=== PATIENT | male | born 1950 | race Caucasian/White ===

== ENCOUNTER 2018-04-19 18:42 | Observation (INO) | payer MEDICARE, OTHER ==
[2018-04-19 18:45] VITALS: BP 141/78; PULSE 96; RESP 20; TEMP 98.9; O2SAT 97
[2018-04-19] MEDS ORDERED: SODIUM CHLORIDE 0.9% FLUSH 10 ML FLUSH IVF PRN (19:00)
[2018-04-19] MEDS ORDERED: ASPIRIN 325 MG TAB PO ONE (19:00)
[2018-04-19 19:04] LABS: AUTOMATED NEUTROPHIL # 0.6 TH/MM3 (1.8-7.7); BASOPHIL % 1.5 % (0.0-2.0); EOSINOPHIL % 0.7 % (0.0-4.0); HEMATOCRIT 33.8 % (39.0-51.0); HEMOGLOBIN 11.4 GM/DL (13.0-17.0); LYMPH % 30.5 % (9.0-44.0); LYMPHOCYTE # 0.4 TH/MM3 (1.0-4.8); MEAN CELL VOLUME 81.4 FL (80.0-100.0); MEAN CORPUSCULAR HEMOGLOBIN 27.4 PG (27.0-34.0); MEAN CORPUSCULAR HGB CONC 33.7 % (32.0-36.0); MEAN PLATELET VOLUME 7.9 FL (7.0-11.0); MONO % 16.1 % (0.0-8.0); MONOCYTE # 0.2 TH/MM3 (0-0.9); NEUT % 51.2 % (16.0-70.0); PLATELET COUNT 62 TH/MM3 (150-450); RED BLOOD COUNT 4.16 MIL/MM3 (4.50-5.90); RED CELL DISTRIBUTION WIDTH 15.3 % (11.6-17.2); WHITE BLOOD COUNT 1.2 TH/MM3 (4.0-11.0)
[2018-04-19 19:12] LABS: CHLORIDE 106 MEQ/L (98-107); SODIUM (NA) 138 MEQ/L (136-145)
[2018-04-19 19:14] VITALS: BP 141/78; PULSE 94; RESP 20; O2SAT 96
[2018-04-19 19:15] LABS: CALCIUM 8.7 MG/DL (8.5-10.1)
[2018-04-19 19:16] VITALS: BP 141/78; PULSE 96; RESP 18; O2SAT 97
[2018-04-19 19:16] LABS: ALBUMIN 3.1 GM/DL (3.4-5.0); BICARBONATE 24.1 MEQ/L (21.0-32.0); BLOOD UREA NITROGEN 33 MG/DL (7-18); GLUCOSE,RANDOM 123 MG/DL (74-106); MAGNESIUM 2.2 MG/DL (1.5-2.5)
[2018-04-19] MEDS ORDERED: LIPI80TA PO (19:17)
[2018-04-19] MEDS ORDERED: NOVOLOGP2 SQ (19:17)
[2018-04-19] MEDS ORDERED: LISI10TA3 PO (19:17)
[2018-04-19] MEDS ORDERED: LANTUS2P SQ (19:17)
[2018-04-19] MEDS ORDERED: LAMO100T PO (19:17)
[2018-04-19] MEDS ORDERED: CLOP75TA PO (19:17)
[2018-04-19] MEDS ORDERED: FLUT1INH7 INH (19:17)
[2018-04-19] MEDS ORDERED: BUPR150T3 (19:17)
[2018-04-19] MEDS ORDERED: ASPI-516 CHEW (19:17)
[2018-04-19] MEDS ORDERED: METF1000 PO (19:17)
[2018-04-19] MEDS ORDERED: SUBO8MIS SL (19:17)
[2018-04-19] MEDS ORDERED: TIOT12.9 INH (19:17)
[2018-04-19] MEDS ORDERED: METO50TA PO (19:17)
[2018-04-19] MEDS ORDERED: LYRI100C PO (19:17)
[2018-04-19 19:18] LABS: ALT (GPT) 26 U/L (12-78); PROTHROMBIN TIME - PATIENT 10.1 SEC (9.8-11.6)
[2018-04-19 19:19] LABS: AST (GOT) 11 U/L (15-37); GLOMERULAR FILTRATION RATE 40 ML/MIN (>89)
[2018-04-19 19:20] LABS: TOTAL BILIRUBIN ADULT 0.4 MG/DL (0.2-1.0); TOTAL PROTEIN 6.9 GM/DL (6.4-8.2)
[2018-04-19 19:21] LABS: ALKALINE PHOSPHATASE 76 U/L (45-117)
[2018-04-19 19:24] LABS: TROPONIN I LESS THAN 0.02 NG/ML (0.02-0.05)
--- NOTE | 2018-04-19 19:27 | PD ---
HPI Chief Complaint: Pain: Acute or Chronic Time Seen by Provider: 19:22 Travel History International Travel<30 days: No Contact w/Intl Traveler<30days: No Traveled to known affect area: No History of Present Illness HPI Patient comes in complaining of continuous substernal chest pain, over the past 3 days, rated 7 out of 10, patient gives a history of a recent cath is at [facility]( 1 month ago )however states that he did not have any stents placed? Patient denies any alleviating or aggravating factors. Patient denies any associated factors such as fever, rash, nausea, vomiting, diaphoresis, abdominal pain, flank pain or back pain. Patient states narcotics and alcohol are in his allergies Past medical history significant for heart attack, hypercholesterolemia, diabetes, hypertension, COPD, 1 pack a day smoker, chronic back pain, neuropathy to feet, patient is on Suboxone [facility] Past Medical History High Cholesterol: Yes Chest Pain: Yes COPD: Yes Diabetes: Yes Patient Takes Glucophage: Yes Diminished Hearing: No Hypertension: Yes Musculoskeletal: Yes (CHRONIC BACK PAIN, FEET NEUROPATHY) Myocardial Infarction: Yes Tetanus Vaccination: < 5 Years Influenza Vaccination: Yes ?: Not Social History Alcohol Use: No Tobacco Use: Yes (1PPD) Substance Use: Yes (OPIATE DEPENDEN FOR 21 YEARS ,NOW ON SUBOXONE) Allergies-Medications (Allergen,Severity, Reaction): Coded Allergies: alcohol (Unverified Allergy, Unknown, 04/19/18) Uncoded Allergies: NARCOTICS (Allergy, Unknown, 11/30/03) Reported Meds & Prescriptions Reported Meds & Active Scripts Active Reported Spiriva Respimat Inh (Tiotropium Inh) 2.5 Mcg/Act Aero 2 Puff INH DAILY 2.5 mcg = 1 inhalation Lyrica (Pregabalin) 100 Mg Cap 100 Mg PO TID Metoprolol Tartrate 50 Mg Tab 50 Mg PO DAILY Metformin (Metformin HCl) 1,000 Mg Tab 1,000 Mg PO BIDPC Lisinopril 10 Mg Tab 10 Mg PO DAILY Lamotrigine 100 Mg Tab 100 Mg PO DAILY Lantus Inj (Insulin Glargine) 1,000 Unit/10 Ml Vial 70 Units SQ HS Novolog Inj (Insulin Aspart) 1,000 Unit/10 Ml Vial 0 SQ DIRECTED Sliding Scale as directed. Breo Ellipta Inh (Fluticasone/Vilanterol) 200-25 Mcg/Act Inh 1 Puff INH DAILY Use daily at the same time. Clopidogrel (Clopidogrel Bisulfate) 75 Mg Tab 75 Mg PO DAILY Suboxone Sublingual Film (Buprenorphine-Naloxone Sublingual Film) 8-2 Mg Film 1 Film SL Unique ID number required: Bupropion HCl ER 24 HR (Bupropion HCl) 150 Mg Tab 150 Mg DAILY Lipitor (Atorvastatin Calcium) 80 Mg Tab 80 Mg PO HS Aspirin 81 Mg Chew 81 Mg CHEW DAILY Review of Systems General / Constitutional: No: Fever Eyes: No: Visual changes HENT: No: Headaches Cardiovascular: Positive: Chest Pain or Discomfort Respiratory: No: Shortness of Breath Gastrointestinal: No: Abdominal Pain Genitourinary: No: Dysuria Musculoskeletal: No: Pain Skin: No Rash Neurologic: No: Weakness Psychiatric: No: Depression Endocrine: No: Polydipsia Hematologic/Lymphatic: No: Easy Bruising Physical Exam Narrative GENERAL: SKIN: Warm and dry. HEAD: Atraumatic. Normocephalic. EYES: Pupils equal and round. No scleral icterus. No injection or drainage. ENT: No nasal bleeding or discharge. Mucous membranes pink and moist. NECK: Trachea midline. No JVD. CARDIOVASCULAR: Regular rate and rhythm. RESPIRATORY: No accessory muscle use. Clear to auscultation. Breath sounds equal bilaterally. GASTROINTESTINAL: Abdomen soft, non-tender, nondistended. MUSCULOSKELETAL: Extremities without clubbing, cyanosis, or edema. No obvious deformities. NEUROLOGICAL: Awake and alert. No obvious cranial nerve deficits. Motor grossly within normal limits. Five out of 5 muscle strength in the arms and legs. Normal speech. PSYCHIATRIC: Appropriate mood and affect; insight and judgment normal. Data Data Last Documented VS Vital Signs Date Time Temp Pulse Resp B/P (MAP) Pulse Ox O2 Delivery O2 Flow Rate FiO2 04/19/18 20:31 92 18 125/73 (90) 96 04/19/18 19:16 Room Air 04/19/18 18:45 98.9 Orders Orders Electrocardiogram (04/19/18 18:51) B-Type Natriuretic Peptide (04/19/18 18:51) Ckmb (Isoenzyme) Profile (04/19/18 18:51) Complete Blood Count With Diff (04/19/18 18:51) Comprehensive Metabolic Panel (04/19/18 18:51) Magnesium (Mg) (04/19/18 18:51) Prothrombin Time / Inr (Pt) (04/19/18 18:51) Act Partial Throm Time (Ptt) (04/19/18 18:51) Troponin I (04/19/18 18:51) Lipase (04/19/18 18:51) Chest, Single Ap (04/19/18 18:51) Ecg Monitoring (04/19/18 18:51) Iv Access Insert/Monitor (04/19/18 18:51) Oximetry (04/19/18 18:51) Oxygen Administration (04/19/18 18:51) Aspirin (Aspirin) (04/19/18 19:00) Sodium Chloride 0.9% Flush (Ns Flush) (04/19/18 19:00) Nitroglycerin 2% Oint (Nitroglycerin 2% (04/19/18 19:30) Hydromorphone Pf Inj (Dilaudid Pf Inj) (04/19/18 20:30) Labs Laboratory Tests Test 04/19/18 18:50 White Blood Count 1.2 TH/MM3 Red Blood Count 4.16 MIL/MM3 Hemoglobin 11.4 GM/DL Hematocrit 33.8 % Mean Corpuscular Volume 81.4 FL Mean Corpuscular Hemoglobin 27.4 PG Mean Corpuscular Hemoglobin Concent 33.7 % Red Cell Distribution Width 15.3 % Platelet Count 62 TH/MM3 Mean Platelet Volume 7.9 FL Neutrophils (%) (Auto) 51.2 % Lymphocytes (%) (Auto) 30.5 % Monocytes (%) (Auto) 16.1 % Eosinophils (%) (Auto) 0.7 % Basophils (%) (Auto) 1.5 % Neutrophils # (Auto) 0.6 TH/MM3 Lymphocytes # (Auto) 0.4 TH/MM3 Monocytes # (Auto) 0.2 TH/MM3 Eosinophils # (Auto) 0.0 TH/MM3 Basophils # (Auto) 0.0 TH/MM3 CBC Comment AUTO DIFF Differential Total Cells Counted 100 Neutrophils % (Manual) 34 % Band Neutrophils % 9 % Lymphocytes % 45 % Monocytes % 10 % Eosinophils % 1 % Neutrophils # (Manual) 0.5 TH/MM3 Metamyelocytes 1 % Differential Comment FINAL DIFF MANUAL Dohle Bodies PRESENT Platelet Estimate LOW Platelet Morphology Comment NORMAL Red Cell Morphology Comment NORMAL Prothrombin Time 10.1 SEC Prothromb Time International Ratio 1.0 RATIO Activated Partial Thromboplast Time 26.7 SEC Blood Urea Nitrogen 33 MG/DL Creatinine 1.70 MG/DL Random Glucose 123 MG/DL Total Protein 6.9 GM/DL Albumin 3.1 GM/DL Calcium Level 8.7 MG/DL Magnesium Level 2.2 MG/DL Alkaline Phosphatase 76 U/L Aspartate Amino Transf (AST/SGOT) 11 U/L Alanine Aminotransferase (ALT/SGPT) 26 U/L Total Bilirubin 0.4 MG/DL Sodium Level 138 MEQ/L Potassium Level 4.5 MEQ/L Chloride Level 106 MEQ/L Carbon Dioxide Level 24.1 MEQ/L Anion Gap 8 MEQ/L Estimat Glomerular Filtration Rate 40 ML/MIN Total Creatine Kinase 70 U/L Troponin I LESS THAN 0.02 NG/ML B-Type Natriuretic Peptide 159 PG/ML Lipase 92 U/L MDM Medical Decision Making Medical Screen Exam Complete: Yes Emergency Medical Condition: Yes Medical Record Reviewed: Yes Interpretation(s) EKG shows normal sinus rhythm at 97 bpm, patient's EKG does not show any ST elevation however they do show evidence of ST depressions in V4 through V6 Differential Diagnosis Non-STEMI versus STEMI versus coronary artery disease versus pneumothorax versus pneumonia Narrative Course Upon review, the patient's was able to pull up his records from [facility] online , where the patient has had a CT of the chest performed on late February in which he did not show any evidence of aneurysms, to the thoracic aorta, nor any evidence of pulmonary embolus. It did however show lung CA lesion. Small cell as per history from and patient, for which he has been receiving radiation and is on his fourth cycle of chemo. CBC shows leukopenia 1.2, H&H of , no left shift and a platelet count of 62 ,000 Coagulation profile is within normal limits Electrolytes are all within normal limits with the exception of a BUN of 33 creatinine 1.7 a GFR of 40 First set of troponin negative at less than 0.02 Normal liver and pancreatic enzymes Normal beta natruretic peptide 159 which is not significant for CHF Chest x-ray according to my interpretation shows no evidence of consolidation, pneumothorax, effusion pleural, or infiltrate.... However right hilar has some spiculations noted, no major masses noted. Diagnosis Primary Impression: Chest pain rule out [place] Admitting Information Admitting Physician Requests: Observation Pablo Puga MD April 19, 2018 19:27
[2018-04-19] MEDS ORDERED: HYDROmorphone HCL PF 1 MG/ML VIAL IV PUSH ONE (19:30)
[2018-04-19] MEDS ORDERED: NITROGLYCERIN 2% OINT 1 GM PACKET TOP ONE (19:30)
[2018-04-19 19:39] LABS: BANDS 9 % (0-6); LYMPHOCYTES 45 % (9-44); METAMYELOCYTES 1 % (0-1); MONOCYTES 10 % (0-8); NEUTROPHIL # MANUAL DIFF 0.5 TH/MM3 (1.8-7.7); POLYS (SEG NEUTROPHILS) 34 % (16-70)
[2018-04-19 19:40] LABS: DOHLE BODIES PRESENT (NONE SEEN)
[2018-04-19] MEDS ORDERED: HYDROmorphone HCL PF 2 MG/ML VIAL IV PUSH ONE (20:30)
[2018-04-19 20:31] VITALS: BP 125/73; PULSE 92; RESP 18; O2SAT 96
--- NOTE | 2018-04-19 21:00 | RADRPT ---
EXAM DATE: 04/19/2018 7:23 PM EDT AGE/SEX: 68 years / Male INDICATIONS: Chest pain. CLINICAL DATA: This is the patient's initial encounter. Patient reports that signs and symptoms have been present for 2 days and indicates a pain score of 9/10. MEDICAL/SURGICAL HISTORY: Carcinoma, lung. Heart attack. None. COMPARISON: No prior [facility] exams available for comparison. FINDINGS: A single AP view of the chest demonstrates the lungs to be symmetrically aerated without evidence of mass, infiltrate or effusion. The cardiomediastinal contours are unremarkable. Osseous structures a re intact. CONCLUSION: No acute cardiopulmonary disease. Electronically signed by: Austen Blanco MD 04/19/2018 8:59 PM EDT
[2018-04-19] MEDS ORDERED: SENNOSIDES 8.6 MG TAB PO PRN (21:45)
[2018-04-19] MEDS ORDERED: SODIUM CHLORIDE 0.9% FLUSH 10 ML FLUSH IV FLUSH PRN (21:45)
[2018-04-19] MEDS ORDERED: NALOXONE HCL 0.4 MG/ML AMP IV PUSH PRN (21:45)
[2018-04-19] MEDS ORDERED: BISACODYL 10 MG SUPP RECTAL PRN (21:45)
[2018-04-19] MEDS ORDERED: MAGNESIUM HYDROXIDE SUSP 30 ML CUP PO PRN (21:45)
[2018-04-19] MEDS ORDERED: ACETAMINOPHEN 325 MG TAB PO PRN (21:45)
[2018-04-19] MEDS ORDERED: LACTULOSE SYRUP 20 GM/30 ML CUP PO PRN (21:45)
[2018-04-19 22:19] VITALS: BP 125/73
[2018-04-19 22:40] VITALS: PULSE 93
[2018-04-20] VITALS: BP 137/81; PULSE 87; RESP 16; TEMP 97.4; O2SAT 100
[2018-04-20 01:06] VITALS: O2SAT 93
[2018-04-20 04:00] VITALS: BP 138/65; PULSE 96; RESP 16; TEMP 99; O2SAT 97
[2018-04-20 07:52] VITALS: BP 109/59; PULSE 92; RESP 20; TEMP 99.9; O2SAT 94
[2018-04-20] MEDS ORDERED: INSULIN ASPART SUPPLEMENTAL SCALE SQ SCH (08:00)
[2018-04-20] MEDS ORDERED: GLUCAGON 1 MG/ML VIAL OTHER PRN (08:00)
[2018-04-20] MEDS ORDERED: DEXTROSE 50% IN WATER 50 ML VIAL(D50) IV PUSH PRN (08:00)
--- NOTE | 2018-04-20 08:31 | HHI.HP ---
[facility] Service [place] [facility] Primary Care Physician Non-Staff Admission Diagnosis CP R/O [place] Diagnoses: (1) Chest pain Diagnosis: Principal Chief Complaint: chest pain Travel History International Travel<30 Days: No Contact w/Intl Traveler <30 Da: No Traveled to Known Affected Are: No History of Present Illness Written by Hong Christopher, acting as scribe for Dr. Saha on 04/20/18 at 08: 31. 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 Patient states that he woke up Monday morning and after he took his medication he started developing pain in his chest which he states was across his entire chest which remained constant at a pain scale of 8/10 patient states that he gets that sometimes whenever he takes his medications and irritates his esophagus. The patient does not indicate any radiation to his neck, shoulder, arm. States that it does radiate into his back. He does have chronic intermittent nausea and vomiting since chemotherapy/radiation therapy. He does have shortness of breath but no significant change of his current situation. Denies any lightheadedness or dizziness. The pain did not improve. He went to [facility] on Monday and had evaluation done emergency department. Patient was given a GI cocktail and he indicates that he lied to the staff there and told them that the medication worked so he was discharged home. Patient has remained in constant pain since then. The patient tolerated the pain up until yesterday when he came to the emergency department for evaluation. Patient states that he was given medications such as nitro, Dilaudid without any relief. Patient does have history of recent myocardial infarction up at [facility] on April 20, 2018. During that hospitalization he underwent cardiac catheterization. According to patient and why they do not believe that he had any type of intervention done. Patient is undergoing treatment for his lung cancer. He is currently on chemotherapy and finished radiation therapy April 03, 2018. Patient does have history of pancytopenia and was on the Neupro transdermal patch. Patient does have history of chronic pain and he is on Suboxone. He is followed by pain management facility in outpatient setting. He indicates that pain medication does not work for him because he is on Suboxone. He states that he has to take 5-6 Excedrin to try to help with his chest discomfort, however there is no relief. Patient does indicate that he has had this chest pain before if he takes his medications and irritates his esophagus. But the pain usually does not last this long. He has been told by the ER at [facility] that he probably needs a follow-up with his GI physician. Patient presently sitting in bed quite frustrated. Quite voiced full of his concerns and complaints. Currently he is still in pain. Review of Systems Cardiovascular: COMPLAINS OF: Chest pain Except as stated in HPI: all other systems reviewed are Neg Past Family Social History Past Medical History Hypertension Hyperlipidemia History of recent myocardial infarction Diabetes Small cell carcinoma stage IIIa Chronic tobacco use Chronic pain Narcotic dependency Peripheral neuropathy Chronic obstructive pulmonary disease Past Surgical History Cataract surgery Lumbar spine surgery Reported Medications Reported Meds & Active Scripts Active Reported Spiriva Respimat Inh (Tiotropium Inh) 2.5 Mcg/Act Aero 2 Puff INH DAILY 2.5 mcg = 1 inhalation Lyrica (Pregabalin) 100 Mg Cap 100 Mg PO TID Metoprolol Tartrate 50 Mg Tab 50 Mg PO DAILY Metformin (Metformin HCl) 1,000 Mg Tab 1,000 Mg PO BIDPC Lisinopril 10 Mg Tab 10 Mg PO DAILY Lamotrigine 100 Mg Tab 100 Mg PO DAILY Lantus Inj (Insulin Glargine) 1,000 Unit/10 Ml Vial 70 Units SQ HS Novolog Inj (Insulin Aspart) 1,000 Unit/10 Ml Vial 0 SQ DIRECTED Sliding Scale as directed. Breo Ellipta Inh (Fluticasone/Vilanterol) 200-25 Mcg/Act Inh 1 Puff INH DAILY Use daily at the same time. Clopidogrel (Clopidogrel Bisulfate) 75 Mg Tab 75 Mg PO DAILY Suboxone Sublingual Film (Buprenorphine-Naloxone Sublingual Film) 8-2 Mg Film 1 Film SL Unique ID number required: Bupropion HCl ER 24 HR (Bupropion HCl) 150 Mg Tab 150 Mg DAILY Lipitor (Atorvastatin Calcium) 80 Mg Tab 80 Mg PO HS Aspirin 81 Mg Chew 81 Mg CHEW DAILY Allergies: Coded Allergies: alcohol (Unverified Allergy, Unknown, 04/19/18) Uncoded Allergies: NARCOTICS (Allergy, Unknown, 11/30/03) Family History Family history reviewed and significant for family history of heart disease Social History Patient continues to smoke half a pack of cigarettes a day since he was 12 years old. Patient denies any alcohol or illicit drug use Physical Exam Vital Signs Vital Signs Date Time Temp Pulse Resp B/P (MAP) Pulse Ox O2 Delivery O2 Flow Rate FiO2 04/20/18 07:52 99.9 92 20 109/59 (76) 94 04/20/18 04:00 99.0 96 16 138/65 (89) 97 04/20/18 01:06 93 21 04/20/18 00:00 97.4 87 16 137/81 (99) 100 04/19/18 22:40 93 04/19/18 22:19 75 18 125/73 (90) 04/19/18 21:09 16 04/19/18 20:31 92 18 125/73 (90) 96 04/19/18 19:16 97 Room Air 04/19/18 19:16 96 18 141/78 (99) 97 Room Air 04/19/18 19:14 94 20 141/78 (99) 96 Room Air 04/19/18 18:45 98.9 96 20 141/78 (99) 97 Physical Exam GENERAL: Well-developed, well-nourished, in no acute distress. alert and orientated HEENT: Head is normocephalic without any lesions or masses noted. Facial features are symmetric. Eyes: Pupils equal round reactive to light. Extraocular muscles are intact. Conjunctivae were clear. Oropharyngeal: Pharynx without any erythema edema. Tongue is midline without deviation. Buccal mucosa is moist without any masses or lesions NECK: Supple without any masses. Trachea midline no deviation. No JVD, no bruits are appreciated CARDIAC: Regular rhythm, regular rate. S1/S2 are heard. No murmurs gallops or rubs. Reproducible chest pain on palpation LUNGS: Clear to auscultation bilaterally. No wheeze, rhonchi or rales. No use of accessory muscles on inspiration or expiration. ABDOMEN: Soft, nontender. Nondistended. Bowel sounds heard in all 4 quadrants. No organomegaly or masses. Negative rebound, negative guarding EXTREMITIES: No edema, pulses are equal bilaterally. No cyanosis or clubbing NEUROLOGY: Mood and affect appear appropriate. Cranial nerves II through XII grossly intact. Muscle strength 5/5 in upper and lower extremities bilaterally. Deep tendon reflexes are 2+ in upper and lower extremities bilaterally. Laboratory Laboratory Tests Test 04/19/18 18:50 04/19/18 23:00 04/20/18 05:15 White Blood Count 1.2 Red Blood Count 4.16 Hemoglobin 11.4 Hematocrit 33.8 Mean Corpuscular Volume 81.4 Mean Corpuscular Hemoglobin 27.4 Mean Corpuscular Hemoglobin Concent 33.7 Red Cell Distribution Width 15.3 Platelet Count 62 Mean Platelet Volume 7.9 Neutrophils (%) (Auto) 51.2 Lymphocytes (%) (Auto) 30.5 Monocytes (%) (Auto) 16.1 Eosinophils (%) (Auto) 0.7 Basophils (%) (Auto) 1.5 Neutrophils # (Auto) 0.6 Lymphocytes # (Auto) 0.4 Monocytes # (Auto) 0.2 Eosinophils # (Auto) 0.0 Basophils # (Auto) 0.0 CBC Comment AUTO DIFF Differential Total Cells Counted 100 Neutrophils % (Manual) 34 Band Neutrophils % 9 Lymphocytes % 45 Monocytes % 10 Eosinophils % 1 Neutrophils # (Manual) 0.5 Metamyelocytes 1 Differential Comment FINAL DIFF MANUAL Dohle Bodies PRESENT Platelet Estimate LOW Platelet Morphology Comment NORMAL Red Cell Morphology Comment NORMAL Prothrombin Time 10.1 Prothromb Time International Ratio 1.0 Activated Partial Thromboplast Time 26.7 Blood Urea Nitrogen 33 Creatinine 1.70 Random Glucose 123 Total Protein 6.9 Albumin 3.1 Calcium Level 8.7 Magnesium Level 2.2 Alkaline Phosphatase 76 Aspartate Amino Transf (AST/SGOT) 11 Alanine Aminotransferase (ALT/SGPT) 26 Total Bilirubin 0.4 Sodium Level 138 Potassium Level 4.5 Chloride Level 106 Carbon Dioxide Level 24.1 Anion Gap 8 Estimat Glomerular Filtration Rate 40 Total Creatine Kinase 70 Troponin I LESS THAN 0.02 LESS THAN 0.02 LESS THAN 0.02 B-Type Natriuretic Peptide 159 Lipase 92 Result Diagram: 04/19/18184904/19/181849 Imaging Last Impressions Chest X-Ray 04/19/181850 Signed Impressions: CONCLUSION: No acute cardiopulmonary disease. Caprini VTE Risk Assessment Caprini VTE Risk Assessment: Mod/High Risk (score >= 2) Caprini Risk Assessment Model Point Value = 1 Point Value = 2 Point Value = 3 Point Value = 5 Age 41-60 Minor surgery BMI > 25 kg/m2 Swollen legs Varicose veins or History of unexplained or recurrent spontaneous Oral contraceptives or hormone replacement Sepsis (< 1 month) Serious lung disease, including pneumonia (< 1 month) Abnormal pulmonary function Acute myocardial infarction Congestive heart failure (< 1 month) History of inflammatory bowel disease Medical patient at bed rest Age 61-74 Arthroscopic surgery Major open surgery (> 45 min) Laparoscopic surgery (> 45 min) Malignancy Confined to bed (> 72 hours) Immobilizing plaster cast Central venous access Age >= 75 History of VTE Family history of VTE Factor V Leiden Prothrombin [id number] Lupus anticoagulant Anticardiolipin antibodies Elevated serum homocysteine Heparin-induced thrombocytopenia Other congenital or acquired thrombophilia Stroke (< 1 month) Elective arthroplasty Hip, pelvis, or leg fracture Acute spinal cord injury (< 1 month) Prophylaxis Regimen Total Risk Factor Score Risk Level Prophylaxis Regimen 0-1 Low Early ambulation 2 Moderate Order ONE of the following: *Sequential Compression Device (SCD) *Heparin 5000 units SQ BID 3-4 Higher Order ONE of the following medications: *Heparin 5000 units SQ TID *Enoxaparin/Lovenox 40 mg SQ daily (WT < 150 kg, CrCl > 30 mL/min) *Enoxaparin/Lovenox 30 mg SQ daily (WT < 150 kg, CrCl > 10-29 mL/min) *Enoxaparin/Lovenox 30 mg SQ BID (WT < 150 kg, CrCl > 30 mL/min) AND/OR *Sequential Compression Device (SCD) 5 or more Highest Order ONE of the following medications: *Heparin 5000 units SQ TID (Preferred with Epidurals) *Enoxaparin/Lovenox 40 mg SQ daily (WT < 150 kg, CrCl > 30 mL/min) *Enoxaparin/Lovenox 30 mg SQ daily (WT < 150 kg, CrCl > 10-29 mL/min) *Enoxaparin/Lovenox 30 mg SQ BID (WT < 150 kg, CrCl > 30 mL/min) AND *Sequential Compression Device (SCD) Assessment and Plan Problem List: (1) Chest pain ICD Code: R07.9 - Chest pain, unspecified Assessment and Plan 68-year-old male with rather unfortunate history of recent diagnosis of lung cancer undergoing radiation, chemotherapy, recent heart attack who presented to the hospital because of constant chest pain. Chest pain, atypical -Patient with increased risk factors include age, male, hypertension, hyper lipidemia, history of myocardial infarction, tobacco use, family history of heart disease -Patient has been ruled out for acute coronary event with serial cardiac enzymes that are negative -Serial EKG shows sinus rhythm with signs of old inferior infarct, no acute changes -Patient has had recent cardiac catheterization 1 month ago at [facility], did show severe coronary disease with complete occlusion of the RCA, however does have collaterals. Mild ostial left main disease, severe ostial stenosis of the high OM branch/ramus branch. Moderate disease of the ostium of the left circumflex. Is recommended the patient undergo optimal medical therapy in the setting of his lung cancer treatment. Aggressive risk factor modification. -Patient continued on aspirin, Plavix, statin -Because of the patient's multivessel coronary artery disease and undergoing radiation/chemotherapy for lung cancer. It is difficult to determine how much of the patient's pain is related to actual ischemic disease versus cancer pain. This was discussed with the patient extensively. Patient was offered multiple options to pursue treatment. 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 Versus patient can be offered admission here at this hospital and we would have to consult cardiology/oncology and ordered to evaluate him, contact [facility] and tried to do further evaluation here at [place]. The patient and his decided that they would like to be discharged at this time considering he has not had acute coronary event and they will follow up with [facility] for further evaluation and management. Small cell carcinoma stage IIIa -Status post radiation therapy last dose was April 03, continuing on chemotherapy at this time -Patient continued to follow-up with outpatient oncologist Pancytopenia with neutropenia, secondary to chemotherapy -Reviewed previous records supplied by patient's from [place] which patient's recent WBC count was 1.1 with neutropenia, appears to be persistent - and patient indicates that he was wearing the Neupro patch -Patient will need to continue follow-up with his oncologist for further treatment Chronic pain with opiate dependency -Patient is on Suboxone and managed by his pain management doctor in outpatient setting Hypertension, hyper lipidemia, -Home medications continued Chronic smoker -Patient counseled extensively on cessation DVT prevention -Patient does have thrombocytopenia -Sequential compression devices Discharge disposition Discharge home in stable condition Activity: Ad kathleen. Diet: Healthy heart diet Medication per medication reconciliation Follow-up with primary medical doctor in 1 week This note was transcribed by beronica Christopher. I, Dr. Elie Saha personally performed the history, physical exam, and medical decision making; and confirmed the accuracy of the information in the transcribed note. Authenticated by Dr. Elie Saha on 04/20/18 at 08:31. Code Status Full code Discussed Condition With Nursing staff, patient, at bedside Hong Christopher April 20, 2018 08:31 Elie Saha MD April 20, 2018 08:32
[2018-04-20] MEDS ORDERED: CLOPIDOGREL 75 MG TAB PO SCH (09:00)
[2018-04-20] MEDS ORDERED: LISINOPRIL 10 MG TAB PO SCH (09:00)
[2018-04-20] MEDS ORDERED: PREGABALIN 100 MG CAP PO SCH (09:00)
[2018-04-20] MEDS ORDERED: ASPIRIN 81 MG CHEW TAB CHEW SCH (09:00)
[2018-04-20] MEDS ORDERED: buPROPion HCL 150 MG SUSTAINED RELEASE TAB PO SCH (09:00)
[2018-04-20] MEDS ORDERED: lamoTRIgine 100 MG TAB PO SCH (09:00)
[2018-04-20] MEDS ORDERED: SODIUM CHLORIDE 0.9% FLUSH 10 ML FLUSH IV FLUSH SCH (09:00)
[2018-04-20] MEDS ORDERED: LIDOCAINE HCL 5% PATCH T-DERMAL SCH (09:30)
[2018-04-20] MEDS ORDERED: ISOS30TA3 PO (11:06)
--- NOTE | 2018-04-20 11:07 | HHI.DCPOC ---
Discharge Care Plan Diagnosis: (1) Chest pain Goals to Promote Your Health * To prevent worsening of your condition and complications * To maintain your health at the optimal level Directions to Meet Your Goals Take your medications as prescribed Follow your dietary instruction Follow activity as directed Keep your appointments as scheduled Take your immunizations and boosters as scheduled If your symptoms worsen call your PCP, if no PCP go to Urgent Care Center or Emergency Room Smoking is Dangerous to Your Health. Avoid second hand smoke Call the 24-hour hour crisis hotline for domestic abuse at Hong Christopher April 20, 2018 11:07
[2018-04-20 11:31] VITALS: BP 151/70; PULSE 80; RESP 20; TEMP 98.4; O2SAT 94
--- NOTE | 2018-04-20 18:06 | EKG ---
Date Performed: 04/19/2018 Time Performed: 18:47:17 PTAGE: 68 years EKG: Sinus rhythm MODERATE INTRAVENTRICULAR CONDUCTION DELAY NONSPECIFIC ST & T-WAVE ABNORMALITY BORDERLINE ECG Since the previous tracing, no significant change noted NO PREVIOUS TRACING DOCTOR: Marina Lo Interpretating Date/Time 04/20/2018 17:59:32
--- NOTE | 2018-04-20 18:07 | EKG ---
Date Performed: 04/19/2018 Time Performed: 22:43:40 PTAGE: 68 years EKG: Sinus rhythm WITH FREQUENT VENTRICULAR PREMATURE COMPLEXES PROBABLE INFERIOR MYOCARDIAL INFARCTION ABNORMAL ECG S ida the PREVIOUS TRACING , no significant change noted PREVIOUS TRACIN04/19/2018 18.47 DOCTOR: Marina Lo Interpretating Date/Time 04/20/2018 17:59:45
--- NOTE | 2018-04-20 18:08 | EKG ---
Date Performed: 04/20/2018 Time Performed: 04:44:26 PTAGE: 68 years EKG: Sinus rhythm WITH OCCASIONAL VENTRICULAR PREMATURE COMPLEXES PROBABLE INFERIOR MYOCARDIAL INFARCTION ABNORMAL ECG Since the PREVIOUS TRACING , no significant change noted PREVIOUS TRACIN04/19/2018 22.43 DOCTOR: Marina Lo Interpretating Date/Time 04/20/2018 17:59:58
[2018-04-20] MEDS ORDERED: ATORVASTATIN 40 MG TAB PO SCH (21:00)
[2018-04-20] MEDS ORDERED: REMOVE OLD LIDOCAINE PATCH T-DERMAL SCH (21:00)
== END 2018-04-20 12:42 | disposition home or self-care (01) ==
LOC: PHED 18:42 → PHEDA 21:33 → PH3A 22:28
PROVIDERS: ADMIT Hospitalist; ATTEND Hospitalist
DX: R07.9 Chest pain, unspecified (principal); J44.9 Chronic obstructive pulmonary disease, unspecified; I25.2 Old myocardial infarction; I10 Essential (primary) hypertension; G89.29 Other chronic pain; E78.00 Pure hypercholesterolemia, unspecified; E11.40 Type 2 diabetes mellitus with diabetic neuropathy, unspecified; M54.9 Dorsalgia, unspecified; F17.210 Nicotine dependence, cigarettes, uncomplicated; F11.20 Opioid dependence, uncomplicated; Z79.899 Other long term (current) drug therapy; Z79.4 Long term (current) use of insulin; C34.90 Malignant neoplasm of unspecified part of unspecified bronchus or lung; Z92.3 Personal history of irradiation; G62.9 Polyneuropathy, unspecified; Z82.49 Family history of ischemic heart disease and other diseases of the circulatory system; I25.10 Atherosclerotic heart disease of native coronary artery without angina pectoris; I25.82 Chronic total occlusion of coronary artery; D70.1 Agranulocytosis secondary to cancer chemotherapy; T45.1X5A Adverse effect of antineoplastic and immunosuppressive drugs, initial encounter; R94.31 Abnormal electrocardiogram [ECG] [EKG]; R06.02 Shortness of breath
CPT/HCPCS: 71045; 80053; 82550; 82948; 83690; 83735; 83880; 84484; 85007; 85027; 85610; 85730; 93005; 96374; 99285; G0378; J1170